=== PATIENT | female | born 1990 | race Caucasian/White ===

== ENCOUNTER 2017-01-27 07:07 | Inpatient (IN) | payer OTHER ==
[2017-01-27 07:31] VITALS: BMI 25.0
[2017-01-27] MEDS: Lactated Ringer's 1,000 ML IV SCH ×2 (07:45→08:45)
[2017-01-27] MEDS ORDERED: ceFAZolin 1 GM in Sodium Chloride 0.9% 100 ML IVPB STA (07:52)
[2017-01-27] MEDS ORDERED: Oxytocin 30 units/LR 500ML 500 ML IV ONE (08:10)
[2017-01-27] MEDS ORDERED: Morphine 1 mg/ml preservative-free Inj(Duramorph) ONE (08:21)
[2017-01-27 08:29] LABS: BASO % 0.4 % (0.0-2.0); EOS % 0.8 % (0.0-4.0); HEMATOCRIT 41.8 % (34.0-47.0); LYMPH # 2.4 K/uL (1.0-4.3); LYMPH % 43.3 % (20.0-40.0); MEAN CELL VOLUME 84.6 fl (81.0-99.0); MEAN CORPUSCULAR HEMOGLOBIN 27.5 pg (27.0-31.0); MEAN CORPUSCULAR HGB CONC 32.6 g/dL (33.0-37.0); MEAN PLATELET VOLUME 9.6 fl (7.2-11.7); MONO # 0.5 K/uL (0.0-0.8); MONO % 8.4 % (0.0-10.0); NEUT # 2.6 K/uL (1.8-7.0); NEUT % 47.1 % (50.0-75.0); NRBC % 0.1 % (0.0-0.0); RED CELL DISTRIBUTION WIDTH 15.2 % (11.5-14.5); WHITE BLOOD COUNT 5.5 K/uL (4.8-10.8)
[2017-01-27] MEDS ORDERED: Oxytocin 30 units/LR 500ML 500 ML IV SCH (09:00)
[2017-01-27] MEDS ORDERED: Propofol 10 mg/ml Inj (20 ML) ONE (09:00)
[2017-01-27] MEDS ORDERED: Naloxone 0.4 mg/ml Inj (Adult) IVP PRN (09:49)
[2017-01-27] MEDS ORDERED: DiphenhydrAMINE 50 mg/ml Inj IVP PRN (09:49)
--- NOTE | 2017-01-27 10:15 | OP ---
PROCEDURE DATE: 01/27/2017 PREOPERATIVE DIAGNOSES: Intrauterine at 39+ weeks, history of previous section, i n labor. POSTOPERATIVE DIAGNOSES: Intrauterine at 39+ weeks, history of previous section, in labor. OPERATION PERFORMED: Repeat low flap transverse section by Pfannenstiel skin incision. SURGEON: Vinay Pimentel MD. APRON TRIMMER: Cynthia Benavidez MD. ESTIMATED BLOOD LOSS: 800 mL. Rojo catheter put out approximately 300 mL of clear urine. The patient received approximately 700 m L of D5LR intraoperatively. OPERATIVE FINDINGS: Baby boy, vertex presentation, Apgars 9 and 9, weighing 3300 grams - 7 pounds 4 ounces. Normal uterus, tubes, and ovaries were identified. Dr. Benavidez was the administrative assistant data entry in the procedure. She was instrumental in the care of the patient. S he helped create exposure, obtain hemostasis, delivery of the infant, and closure of the patient. e procedure would not have been possible without her assistance. PROCEDURE: After informed consent was obtained, the patient was taken to the operating room where e was given spinal anesthesia. She was then prepped and draped in the usual sterile fashion. A Pfan nenstiel skin incision was then made with a scalpel and carried down to the underlying layer of fasci a. The fascia was nicked in the midline, and the fascial incision was then extended laterally with t he curved Vazquez scissors. Superior aspect of the fascial incision was then grasped with Shelbie clamps , elevated up, and the rectus muscles were dissected off using sharp and blunt dissection. Attention was then turned to the inferior aspect of the fascial incision, which in similar fashion wa s grasped with Shelbie clamps, elevated up, and the rectus muscles were dissected off using sharp and blunt dissection. The rectus muscles were then in the midline. The peritoneum identified and entered sharply with the Metzenbaum scissors. Peritoneal incision was then extended superiorly a nd inferiorly with good visualization of the bladder. The bladder blade was inserted. The vesicoute rine peritoneum was identified and entered sharply with the Metzenbaum scissors. The incision was th en extended laterally, and the bladder flap was created digitally. The bladder blade was readjusted. The low transverse incision was then made along the uterus. The incision was then extended lateral ly with the bandage scissors. The 's head was then delivered atraumatically. The nose and bita th were suctioned with DeLee suction trap. The cord was clamped and cut. The infant was handed off t o waiting pediatricians. The placenta was removed manually. The uterus was exteriorized, cleared of all clots and debris. Th e uterine incision was repaired with 0 Vicryl in a running locked fashion. The second layer of the s selvin suture was used to obtain excellent hemostasis. The abdomen was copiously irrigated. The irrigant was removed with a suction device. Hemostasis was noted. The uterus was returned to the abdomen. The peritoneum was closed with 2-0 Vicryl in a runn ing fashion. The muscles reapproximated with 0 Vicryl in interrupted fashion. The fascia was closed with 0 Vicryl in a running fashion. The skin was closed with 4-0 on a Elbert needle. All sponge, lap, needle, and instrument counts were correct x 2, and the patient was taken to recover y room in awake and stable condition. Natasha Pimentel MD cc: [phone] TT: 01/27/2017 10:14:32 otf
[2017-01-27] MEDS: Oxycodone/Acetaminophen 5/325 mg Tab PO PRN ×2 (14:47→18:02)
[2017-01-28] MEDS: Oxycodone/Acetaminophen 5/325 mg Tab PO PRN ×4 (02:32→19:36)
[2017-01-28 07:44] LABS: HEMATOCRIT 34.1 % (34.0-47.0); MEAN CORPUSCULAR HEMOGLOBIN 28.2 pg (27.0-31.0); MEAN CORPUSCULAR HGB CONC 33.6 g/dL (33.0-37.0); RED CELL DISTRIBUTION WIDTH 15.1 % (11.5-14.5)
[2017-01-28 07:59] LABS: WHITE BLOOD COUNT 9.3 K/uL (4.8-10.8)
[2017-01-28] MEDS ORDERED: Hydrocortisone-Pramoxine 1%-1% Foam(10 gm) ONE (13:10)
[2017-01-28] MEDS: Hydrocortisone-Pramoxine 1%-1% Foam(10 gm) TOP PRN (13:27)
--- NOTE | 2017-01-28 15:33 | OBPPN ---
Datetime: 01/28/2017 15:29 PP Pain Prov: Within normal limits PP Nausea Prov: Denies PP Flatus Prov: Yes PP Breasts Prov: Not Done PP Heart Prov: Normal PP Lungs Prov: Normal PP Abdomen/Uterus Prov: Normal PP Lochia Prov: Not Done PP Vulva/Perineum Prov: Not Done PP CVA Tenderness Prov: Normal PP Extremities Prov: Normal PP C/S Incision Prov: Normal PP Impression Prov: Normal progression PP Plan Prov: Continue present management PP Progress Note Prov: Patient has no complaints pain well-controlled voiding without difficulty ankita erating diet Vital signs stable afebrile Uterus firm below the umbilicus Incision clean dry and intact Postoperative day #2 Ambulating, analgesia, regular diet, anticipate discharge in a.m. Vital Signs Provider PP: Reviewed
[2017-01-28] MEDS: Simethicone 80 mg Chewtab PO PRN ×2 (15:56→19:42)
[2017-01-28] MEDS: guaiFENesin DM 200 mg-20 mg/10 ml UD PO PRN ×2 (15:56→21:30)
[2017-01-29] MEDS: Oxycodone/Acetaminophen 5/325 mg Tab PO PRN (04:40)
[2017-01-29] MEDS: guaiFENesin DM 200 mg-20 mg/10 ml UD PO PRN ×4 (04:43→23:03)
--- NOTE | 2017-01-29 08:02 | OBPPN ---
Datetime: 01/29/2017 07:58 PP Pain Prov: Within normal limits PP Nausea Prov: Denies PP Flatus Prov: Yes PP Breasts Prov: Not Done PP Heart Prov: Normal PP Lungs Prov: Normal PP Abdomen/Uterus Prov: Normal PP Lochia Prov: Not Done PP Vulva/Perineum Prov: Not Done PP CVA Tenderness Prov: Normal PP Extremities Prov: Normal PP C/S Incision Prov: Normal PP Impression Prov: Normal progression PP Plan Prov: Continue present management PP Progress Note Prov: The patient did well postoperative day 2 ambulating tolerating diet minimal l ochia pain well-controlled Vital signs stable afebrile Uterus firm below the umbilicus Incision clean dry and intact Postoperative day 2 Ambulate Regular diet Anticipate discharge in a.m. Vital Signs Provider PP: Reviewed
[2017-01-29] MEDS: Simethicone 80 mg Chewtab PO PRN ×2 (09:32→17:30)
[2017-01-30] MEDS: Hydrocortisone-Pramoxine 1%-1% Foam(10 gm) TOP PRN (08:23)
[2017-01-30] MEDS: guaiFENesin DM 200 mg-20 mg/10 ml UD PO PRN (08:24)
--- NOTE | 2017-01-30 10:27 | OBPPN ---
Datetime: 01/30/2017 10:25 PP Pain Prov: Within normal limits PP Nausea Prov: Denies PP Flatus Prov: Yes PP Breasts Prov: Not Done PP Heart Prov: Normal PP Lungs Prov: Normal PP Abdomen/Uterus Prov: Not Done PP Lochia Prov: Not Done PP Vulva/Perineum Prov: Not Done PP CVA Tenderness Prov: Normal PP Extremities Prov: Normal PP C/S Incision Prov: Normal PP Impression Prov: Normal progression PP Plan Prov: Discharge PP Progress Note Prov: Patient did well ambulating tolerating diet pain well-controlled reports mini mal lochia and voiding without difficulty Vital signs stable afebrile Uterus firm below the umbilicus Incision clean dry and intact Extremities no Homans Postoperative day #3 Discharged home Prescription for Percocet and Motrin and Colace provided Patient to follow-up in one week Nothing per vagina Vital Signs Provider PP: Reviewed
--- NOTE | 2017-01-30 10:29 | OBDS ---
DELIVERY PERSONNEL Delivery Doctor: Vinay Pimentel MD Scrub Nurse: Shruti Mcghee OBT Automobile Mechanic Radiator: Shirley Haque RN Anesthesiologist: Amanda Dickerson MD MATERNAL INFORMATION Delivery Anesthesia: Spinal Medications in Delivery: Pitocin 30 units Estimated Blood Loss (ml): 800 Placenta Cultured: No Maternal Complications: None LABOR SUMMARY EDC: 02/02/2017 00:00 No. Babies in Womb: 1 Attempted: No Labor Anesthesia: Spinal LABOR INFORMATION Reason for Induction: Not Applicable Onset of Labor: 01/27/2017 04:00 Oxytocin: N/A Group B Beta Strep: Not Done (Annotations: patient refused) Steroids Given: None Reason Steroids Not Administered: Not Applicable MEMBRANES Membranes Rupture Method: Artificial Rupture of Membranes: 01/27/2017 08:59 Length of Rupture (hrs): 0.00 Amniotic Fluid Color: Clear Amniotic Fluid Amount: Moderate Amniotic Fluid Odor: Normal STAGES OF LABOR Stage 3 hrs: 0 Stage 3 min: 1 Total Time in Labor hrs: 5 Total Time in Labor min: 0 CSECTION DELIVERY Primary Indication: Repeat Elective Other Primary Indication: repeat c/s in labor CSection Urgency: Emergency CSection Incidence: Repeat Labor: Labor Elective: Nonelective CSection Incision: Lower Uterine Transverse BABY A INFORMATION Delivery Date/Time: 01/27/2017 08:59 Method of Delivery: Born in Route : No : N/A Forceps: N/A Vacuum Extraction: N/A Shoulder Dystocia : No SHOULDER DYSTOCIA BABY A Infant Delivery Date/Time: 01/27/2017 08:59 PRESENTATION/POSITION BABY A Presentation: Cephalic Cephalic Presentation: Vertex Breech Presentation: N/A PLACENTA INFORMATION BABY A Placenta Delivery Time : 01/27/2017 09:00 Placenta Method of Delivery: Spontaneous Placenta Status: Delivered SCORES BABY A Heart Rate 1 min: >100 bpm Resp Effort 1 min: Good Cry Reflex Irritability 1 min: Cough or Sneeze or Pulls Away Muscle Tone 1 min: Active Motion Color 1 min: Body [place], Extremities Blue Resuscitation Effort 1 min: Tactile Stimulation SCORE 1 MIN: 9 Heart Rate 5 min: >100 bpm Resp Effort 5 min: Good Cry Reflex Irritability 5 min: Cough or Sneeze or Pulls Away Muscle Tone 5 min: Active Motion Color 5 min: Body [place], Extremities Blue Resuscitation Effort 5 min: Tactile Stimulation SCORE 5 MIN: 9 INFORMATION BABY A Gestational Age at Delivery: 39.0 Gestational Status: Term Outcome : Liveborn Infant Condition : Stable Infant Sex: Male IDENTIFICATION/MEDS BABY A ID Band Number: [id number] ID Band Location: Left Leg; Left Arm WEIGHT/LENGTH BABY A Birthweight (gms): 3300 Infant Weight (lb): 7 Infant Weight (oz): 4 CORD INFORMATION BABY A No. Cord Vessels: 3 Nuchal Cord : N/A Cord Blood Taken: No Infant Suction: None ASSESSMENT BABY A Infant Complications: None Physical Findings at Delivery: Within Normal Limits Infant Respirations: Appears Normal Automotive Quality Manager/ALS Called : No Infant Care By: Jimbo Lou, WGrimRN Transferred To: [facility]
--- NOTE | 2017-01-30 10:29 | OBDCSUM ---
Datetime: 01/30/2017 10:26 Discharged to, Provider: Home Follow up at, Provider: fady Disch Instr Activity: Normal activity Disch Instr Diet: Regular Discharge Instructions, Provider: Routine instructions given Discharge Diagnosis, Provider: Term Delivered Follow up in weeks, Provider: 1-2 weeks Disch Referrals: None Contraception discussed, Prov: Yes Disch Activity Restrictions: No exercising; No sexual activity; Nothing in vagina - Bel[place], dozier stu reddy Discharge Comment, Provider: Patient did well ambulating tolerating diet pain well-controlled report s minimal lochia and voiding without difficulty Vital signs stable afebrile Uterus firm below the umbilicus Incision clean dry and intact Extremities no Homans Postoperative day #3 Discharged home Prescription for Percocet and Motrin and Colace provided Patient to follow-up in one week Nothing per vagina Contraception after Delivery: Undecided
== END 2017-01-30 13:45 | disposition home or self-care (01) | DRG 371 ==
LOC: H.EROB2 07:07 → H.L&D 07:32 → H.OB/GYN 13:07
PROVIDERS: ADMIT Obstetrics & Gynecology Gynecology; ATTEND Obstetrics & Gynecology Gynecology
PROC: 10D00Z1 Extraction of Products of Conception, Low, Open Approach (ICD-10-PCS; principal; 2017-01-27)
PROC: 4A1HXCZ Monitoring of Products of Conception, Cardiac Rate, External Approach (ICD-10-PCS; 2017-01-27)
DX: O34.211 Maternal care for low transverse scar from previous cesarean delivery (principal); N85.8 Other specified noninflammatory disorders of uterus; Z37.0 Single live birth; Z3A.39 39 weeks gestation of pregnancy